=== PATIENT | male | born 1985 | race Hispanic/Latino ===

== ENCOUNTER 2021-02-03 09:07 | Emergency (ER) | payer SELFPAY ==
[~2021-02-03] VITALS: Ht 160 cm; Wt 106.6 kg
[2021-02-03] MEDS ORDERED: ULTRAM 50MG50 MG PO (10:59)
[2021-02-03] MEDS ORDERED: SODIUM CHLORIDE 0.9% 50ML 50 ML ONE (10:59)
[2021-02-03] MEDS ORDERED: IOPAMIDOL 370 MG/ML 200 ML INFUS..BTL INJ ONE (11:00)
== END 2021-02-03 11:03 | disposition home or self-care (01) ==
LOC: ER 09:33
DX: R10.12 Left upper quadrant pain (principal); R07.89 Other chest pain; S60.222A Contusion of left hand, initial encounter; V43.52XA Car driver injured in collision with other type car in traffic accident, initial encounter; Y92.488 Other paved roadways as the place of occurrence of the external cause; E66.9 Obesity, unspecified
CPT/HCPCS: 71250; 73130; 74176; 99283; Q9967